=== PATIENT | male | born 1975 | race Caucasian/White ===

== ENCOUNTER 2018-05-17 13:29 | Observation (INO) ==
[2018-05-17] MEDS ORDERED: Morphine Inj 4 MG/ML Vial IV.PUSH ONE (13:42)
--- NOTE | 2018-05-17 13:52 | ED ---
HPI General Chief complaint: Chest Pain Stated complaint: Chest Pain x 1.5 Hr Time Seen by Provider: 05/17/18 13:36 Source: patient Mode of arrival: ambulatory Limitations: no limitations History of Present Illness HPI narrative: Patient is a 42 year old male who comes in complaining of left sided chest pain. He says it started about an hour ago and has been constant. He describes the pain as a "pressure." He denies radiation of the pain. He says he had a history of hiatal hernia and occasionally has pain from this, but his pain today feels different. He was admitted at an OSH a few years ago when he had a stress test performed, which he says was normal. He denies SOB. He denies nausea or vomiting. He took 2 baby aspirin at home prior to arrival without relief of his symptoms. He says nothing seems to improve or worsen his symptoms. Severity is mild to moderate. Onset (ago): hour(s) (1) Treatments prior to arrival: aspirin Related Data Allergies Allergy/AdvReac Type Severity Reaction Status Date / Time No Known Allergies Allergy Verified 05/17/18 14:42 Review of Systems Except as stated in HPI: all other systems reviewed are negative Constitutional Denies chills and Denies fever(s) Cardiovascular Reports chest pain, Denies diaphoresis, Denies syncope and Denies edema Respiratory Denies dyspnea and Denies dyspnea on exertion Gastrointestinal Denies nausea and Denies vomiting Musculoskeletal Denies myalgias and Denies arthralgias Integumentary/Breasts Denies rash Neurologic Denies focal weakness [facility] Medical History Medical History Hiatal hernia (Acute) Surgical History Surgical History History of back surgery (Acute) History of cholecystectomy (Acute) Social History Social History Smoking Status: Never smoker How Often Do You Have a Drink Containing Alcohol: 2 to 4 times a month Recent Travel in [facility] within the Last 8 Weeks: No Recent Out of Country Travel within the Last 8 Weeks: No Exam Narrative Exam Narrative: GENERAL: Awake and alert, in no acute distress. SKIN: Focused skin assessment warm/dry. No wounds or signs of infection. HEAD: Atraumatic. Normocephalic. EYES: Pupils equal and round. No scleral icterus. EOMI. ENT: Mucous membranes pink and moist. NECK: Trachea midline. No JVD. CARDIOVASCULAR: Regular rate and rhythm. No murmur appreciated. RESPIRATORY: No accessory muscle use. Clear to auscultation. Breath sounds equal bilaterally. GASTROINTESTINAL: Abdomen soft, non-tender, nondistended. MUSCULOSKELETAL: No obvious deformities. No clubbing. No cyanosis. No edema. NEUROLOGICAL: Awake and alert. No obvious cranial nerve deficits. Motor grossly within normal limits. Normal speech. PSYCHIATRIC: Appropriate mood and affect; insight and judgment normal. Course Hospital Course: IV established, labs sent. Labs show no acute abnormalities. Troponin is negative. Given Aspirin and Morphine. Reevaluation(s) Reevaluation #1: Patient says his pain is starting to ease. I discussed with him the need for observation and he is agreeable at this time. Time: 15:01 Initial Documented Vital Signs Temperature 98.2 F 05/17/18 13:35 Pulse Rate 66 05/17/18 13:35 Respiratory Rate 16 05/17/18 13:35 Blood Pressure 150/97 H 05/17/18 13:35 Pulse Oximetry 95 05/17/18 13:35 Last Documented Vital Signs Temperature 98.2 F 05/17/18 13:35 Pulse Rate 66 05/17/18 13:35 Respiratory Rate 16 05/17/18 13:35 Blood Pressure 150/97 H 05/17/18 13:35 Pulse Oximetry 95 05/17/18 13:35 Medical Decision Making MDM Narrative Medical decision making narrative: Patient is a 42 year old male who comes in complaining of left sided chest pain. Exam shows no acute abnormalities. Labs sent show initial troponin is negative. I believe patient would benefit from observation stay to rule out ACS. Differential Diagnosis Differential Diagnosis: ACS vs NSTEMI vs STEMI Medical Records Medical records reviewed: Yes I reviewed the patient's medical records. Lab Data Result diagrams: 05/17/18 13:30 05/17/18 13:30 Lab Results 05/17/18 05/17/18 05/17/18 Range/Units 13:30 13:30 13:30 CBC w Diff Auto diff final WBC 8.5 (4.0-11.0) th/mm3 RBC 5.19 (4.50-5.90) mil/mm3 Hgb 15.0 (13.0-17.0) gm/dL Hct 42.2 (39.0-51.0) % MCV 81.2 (80.0-100.0) fL MCH 28.9 (27.0-34.0) pg MCHC 35.6 (32.0-36.0) % RDW 13.3 (11.6-17.2) % Plt Count 318 (150-450) th/mm3 MPV 7.5 (7.0-11.0) fL Neut % (Auto) 63.1 (16.0-70.0) % Lymph % (Auto) 23.0 (9.0-44.0) % [place] % (Auto) 7.6 (0.0-8.0) % Eos % (Auto) 5.7 H (0.0-4.0) % Baso % (Auto) 0.6 (0.0-2.0) % Neut # (Auto) 5.3 (1.8-7.7) th/mm3 Lymph # (Auto) 2.0 (1.0-4.8) th/mm3 [place] # (Auto) 0.6 (0.0-0.9) th/mm3 Eos # (Auto) 0.5 H (0.0-0.4) th/mm3 Baso # (Auto) 0.1 (0.0-0.2) th/mm3 WBC Differential . PT 10.5 (9.8-11.6) sec INR 1.0 Ratio APTT 27.0 (24.3-30.1) sec Sodium 139 (136-145) meq/L Potassium 3.9 (3.5-5.1) meq/L Chloride 103 (98-107) meq/L Carbon Dioxide 27.3 (21.0-32.0) meq/L Anion Gap 9 (5-15) meq/L BUN 10 (7-18) mg/dL Creatinine 0.87 (0.60-1.30) mg/dL Estimated GFR Greater than 89 (>89) mL/min Random Glucose 93 (74-106) mg/dL Calcium 8.3 L (8.5-10.1) mg/dL Total Bilirubin 0.4 (0.2-1.0) mg/dL AST 30 (15-37) U/L ALT 71 (12-78) U/L Alkaline Phosphatase 68 (45-117) U/L Total Creatine Kinase 313 H (39-308) U/L CK-MB (CK-2) 3.1 (0.5-3.6) ng/mL CK-MB (CK-2) % 1.0 (0.0-4.0) % Troponin I Less than 0.02 L (0.02-0.05) ng/mL B-Natriuretic Peptide (0-100) pg/mL Total Protein 7.8 (6.4-8.2) g/dL Albumin 3.8 (3.4-5.0) g/dL 05/17/18 Range/Units 13:30 CBC w Diff WBC (4.0-11.0) th/mm3 RBC (4.50-5.90) mil/mm3 Hgb (13.0-17.0) gm/dL Hct (39.0-51.0) % MCV (80.0-100.0) fL MCH (27.0-34.0) pg MCHC (32.0-36.0) % RDW (11.6-17.2) % Plt Count (150-450) th/mm3 MPV (7.0-11.0) fL Neut % (Auto) (16.0-70.0) % Lymph % (Auto) (9.0-44.0) % [place] % (Auto) (0.0-8.0) % Eos % (Auto) (0.0-4.0) % Baso % (Auto) (0.0-2.0) % Neut # (Auto) (1.8-7.7) th/mm3 Lymph # (Auto) (1.0-4.8) th/mm3 [place] # (Auto) (0.0-0.9) th/mm3 Eos # (Auto) (0.0-0.4) th/mm3 Baso # (Auto) (0.0-0.2) th/mm3 WBC Differential PT (9.8-11.6) sec INR Ratio APTT (24.3-30.1) sec Sodium (136-145) meq/L Potassium (3.5-5.1) meq/L Chloride (98-107) meq/L Carbon Dioxide (21.0-32.0) meq/L Anion Gap (5-15) meq/L BUN (7-18) mg/dL Creatinine (0.60-1.30) mg/dL Estimated GFR (>89) mL/min Random Glucose (74-106) mg/dL Calcium (8.5-10.1) mg/dL Total Bilirubin (0.2-1.0) mg/dL AST (15-37) U/L ALT (12-78) U/L Alkaline Phosphatase (45-117) U/L Total Creatine Kinase (39-308) U/L CK-MB (CK-2) (0.5-3.6) ng/mL CK-MB (CK-2) % (0.0-4.0) % Troponin I (0.02-0.05) ng/mL B-Natriuretic Peptide 4 (0-100) pg/mL Total Protein (6.4-8.2) g/dL Albumin (3.4-5.0) g/dL Imaging Data Radiologist's impression: ITS Impressions Chest X-Ray 05/17/18 13:42 CONCLUSION: No acute cardiopulmonary disease ECG Data EKG Prior to Arrival: No Attestation: I personally reviewed and interpreted this ECG as follows: Interpretation: ECG shows NSR at rate of 76, no ST elevation or depression, normal intervals. Discharge Plan Discharge Disposition Patient Disposition: 30 Still Patient Discharge Condition Condition: Stable Discharge Details Discharge Problem: Chest pain Physicians Team ED Provider: Hanna Kaur Primary Care Provider: Primary Care Allison Olson Discharge Instructions Patient Printed Instructions: Chest Pain (ED) Status ED Status: With Doctor
[2018-05-17 14:10] LABS: Baso # (Auto) 0.1 th/mm3 (0.0-0.2); Baso % (Auto) 0.6 % (0.0-2.0); Eos # (Auto) 0.5 th/mm3 (0.0-0.4); Eos % (Auto) 5.7 % (0.0-4.0); Hematocrit 42.2 % (39.0-51.0); Mean Corpuscular HGB Conc 35.6 % (32.0-36.0); Mean Corpuscular Hemoglobin 28.9 pg (27.0-34.0); Mean Corpuscular Volume 81.2 fL (80.0-100.0); Mean Platelet Volume 7.5 fL (7.0-11.0); Mono # (Auto) 0.6 th/mm3 (0.0-0.9); Mono % (Auto) 7.6 % (0.0-8.0); Neut # (Auto) 5.3 th/mm3 (1.8-7.7); Neut % (Auto) 63.1 % (16.0-70.0); Platelet Count 318 th/mm3 (150-450); Red Blood Count 5.19 mil/mm3 (4.50-5.90); Red Cell Distribution Width 13.3 % (11.6-17.2); White Blood Count 8.5 th/mm3 (4.0-11.0)
[2018-05-17 14:17] LABS: Chloride 103 meq/L (98-107); Potassium 3.9 meq/L (3.5-5.1); Sodium 139 meq/L (136-145)
[2018-05-17 14:20] LABS: Albumin 3.8 g/dL (3.4-5.0); Anion Gap 9 meq/L (5-15); Calcium 8.3 mg/dL (8.5-10.1); Carbon Dioxide 27.3 meq/L (21.0-32.0); Glucose,Random 93 mg/dL (74-106)
[2018-05-17 14:21] LABS: Blood Urea Nitrogen 10 mg/dL (7-18)
[2018-05-17 14:22] LABS: Prothrombin Time 10.5 sec (9.8-11.6)
[2018-05-17 14:23] LABS: Alanine Aminotransferase 71 U/L (12-78); Aspartate Aminotransferase 30 U/L (15-37)
[2018-05-17 14:24] LABS: Glomerular Filtration Rate Greater Than 89 mL/min (>89)
--- NOTE | 2018-05-17 14:24 | XR ---
EXAM DATE: 05/17/2018 2:21 PM EDT AGE/SEX: 42 years / Male INDICATIONS: Left side chest pain today. CLINICAL DATA: This is the patient's initial encounter. Patient reports that signs and symptoms have been present for 1 day and indicates a pain score of 8/10. MEDICAL/SURGICAL HISTORY: Hypertension. Renal calculi. . Renal stent. COMPARISON: No prior exams available for comparison. FINDINGS: A single AP view of the chest demonstrates the lungs to be symmetrically aerated without evidence of mass, infiltrate or effusion. The cardiomediastinal contours are unremarkable. Osseous structures a re intact. CONCLUSION: No acute cardiopulmonary disease Electronically signed by: Natan Warren MD 05/17/2018 2:23 PM EDT
[2018-05-17 14:25] LABS: Total Protein 7.8 g/dL (6.4-8.2)
[2018-05-17 14:26] LABS: Alkaline Phosphatase 68 U/L (45-117); Creatine Kinase 313 U/L (39-308)
[2018-05-17 14:38] LABS: Creatine Kinase MB 3.1 ng/mL (0.5-3.6)
[2018-05-17] MEDS ORDERED: Acetaminophen 500 MG Tablet PO PRN (15:16)
[2018-05-17] MEDS ORDERED: Morphine Inj 4 MG/ML Vial IV.PUSH PRN (15:16)
[2018-05-17] MEDS ORDERED: Temazepam 15 MG Capsule PO PRN (15:16)
--- NOTE | 2018-05-17 16:40 | P.HP ---
History of Present Illness Primary Care Physician: No Primary Care Physician Chief Complaint: chest pain History of Present Illness: patient is a 42 y/o male with history of hiatal hernia who presented to ER with chest pain. he says that he gets on and off chest pain because of hiatal hernia. but this time ' it was different'. he says that the pain started few hours ago when he was sitting at his desk. pain was localized to left upper chest with no radiation. pain was not associated with nausea, vomiting, sob or diaphoresis. he says that he had an endoscopy about two years ago when he was found to have hiatal hernia and barrette's esophagus. - Diagnosis (1) Chest pain (2) Hiatal hernia Inpatient Certification: I certify that the inpatient services were ordered in accordance with Medicare regulations governing the order. This includes certification that hospital inpatient services are reasonable and necessary and in the case of services not specified as inpatient-only under 42 CFR 419.22(n), that they are appropriately provided as inpatient services in accordance to with the 2-midnight benchmark under 43 CFR 412.3(e) Estimated Total Length of Stay (Days): 2 Review of Systems All other systems reviewed negative except as stated in HPI PMFSH - History History Provided By: Patient - Medical History Medical History: Medical History (Last Updated 05/17/18 @ 14:24 by Lexy Pineda) Hiatal hernia - Surgical History Surgical History: Surgical History (Last Reviewed 05/17/18 @ 16:03 by Aylin Avalos RN) History of back surgery History of cholecystectomy - Tobacco History Smoking Status: Never smoker - Alcohol History How Often Do You Have a Drink Containing Alcohol: 2 to 4 times a month - Travel History Recent Travel in the [place] Within the Last 8 Weeks: No Recent Travel Out of the Country Within the Last 8 Weeks: No - Immunization History Tetanus Immunization: <5 Years Medications and Allergies Active Medications: Active Medications Acetaminophen (Tylenol) 500 mg PO Q4H PRN PRN Reason: HEADACHE Hydrocodone Bitart/Acetaminophen ([place] 7.5/325) 1 tab PO Q4H PRN PRN Reason: PAIN SCALE 1 TO 7 Aspirin (Aspirin) 325 mg PO DAILY ANA MARIA Morphine Sulfate (Morphine Inj) 2 mg IV.PUSH Q4H PRN PRN Reason: PAIN SCALE 8 TO 10 Ondansetron HCl (Zofran Odt) 4 mg PO Q6H PRN PRN Reason: NAUSEA OR VOMITING Sodium Chloride (Ns Flush) 2 ml IV.FLUSH UNSCH PRN PRN Reason: FLUSH AFTER USING IV ACCESS Sodium Chloride (Ns Flush) 2 ml IV.FLUSH BID ANA MARIA Sodium Chloride (Ns Flush) 2 ml IV.FLUSH PRN PRN PRN Reason: FLUSH AFTER USING IV ACCESS Temazepam (Restoril) 15 mg PO HS PRN PRN Reason: INSOMNIA Allergies Allergy/AdvReac Type Severity Reaction Status Date / Time No Known Allergies Allergy Verified 05/17/18 14:42 Home Medications Medication Instructions Recorded Confirmed Type No Known Home Medications 05/17/18 05/17/18 History Exam Vital signs: Vital Signs 05/17/18 13:35 05/17/18 15:45 Temperature 98.2 F Pulse Rate 66 60 Respiratory Rate 16 16 Blood Pressure 150/97 H 158/92 H Pulse Oximetry 95 97 - Constitutional no acute distress - Routine HEENT Exam Head: Present: normocephalic, atraumatic - Routine Neck Exam Present: supple, full ROM - Routine Cardiovascular Exam Present: RRR - Routine Abdominal Exam Present: soft, normoactive bowel sounds - Routine Neurological Exam Present: alert, oriented X3 Results - Labs CBC & Chem 7: 05/17/18 13:30 05/17/18 13:30 Labs: Laboratory Results - last 24 hr 05/17/18 05/17/18 05/17/18 13:30 13:30 13:30 CBC w Diff Auto diff final WBC 8.5 RBC 5.19 Hgb 15.0 Hct 42.2 MCV 81.2 MCH 28.9 MCHC 35.6 RDW 13.3 Plt Count 318 MPV 7.5 Neut % (Auto) 63.1 Lymph % (Auto) 23.0 [place] % (Auto) 7.6 Eos % (Auto) 5.7 H Baso % (Auto) 0.6 Neut # (Auto) 5.3 Lymph # (Auto) 2.0 [place] # (Auto) 0.6 Eos # (Auto) 0.5 H Baso # (Auto) 0.1 WBC Differential . PT 10.5 INR 1.0 APTT 27.0 Sodium 139 Potassium 3.9 Chloride 103 Carbon Dioxide 27.3 Anion Gap 9 BUN 10 Creatinine 0.87 Estimated GFR Greater than 89 Random Glucose 93 Calcium 8.3 L Total Bilirubin 0.4 AST 30 ALT 71 Alkaline Phosphatase 68 Total Creatine Kinase 313 H CK-MB (CK-2) 3.1 CK-MB (CK-2) % 1.0 Troponin I Less than 0.02 L B-Natriuretic Peptide Total Protein 7.8 Albumin 3.8 05/17/18 13:30 CBC w Diff WBC RBC Hgb Hct MCV MCH MCHC RDW Plt Count MPV Neut % (Auto) Lymph % (Auto) [place] % (Auto) Eos % (Auto) Baso % (Auto) Neut # (Auto) Lymph # (Auto) [place] # (Auto) Eos # (Auto) Baso # (Auto) WBC Differential PT INR APTT Sodium Potassium Chloride Carbon Dioxide Anion Gap BUN Creatinine Estimated GFR Random Glucose Calcium Total Bilirubin AST ALT Alkaline Phosphatase Total Creatine Kinase CK-MB (CK-2) CK-MB (CK-2) % Troponin I B-Natriuretic Peptide 4 Total Protein Albumin - Imaging Impressions Chest X-Ray 05/17/18 13:42 CONCLUSION: No acute cardiopulmonary disease Caprini VTE Risk Assessment Caprini VTE Risk Assessment: Moderate/High Risk (score >= 2) Caprini Risk Assessment Model: Point Value = 1 Point Value = 2 Point Value = 3 Point Value = 5 Age 41-60 Minor surgery BMI > 25 kg/m2 Swollen legs Varicose veins or History of unexplained or recurrent spontaneous Oral contraceptives or hormone replacement Sepsis (< 1 month) Serious lung disease, including pneumonia (< 1 month) Abnormal pulmonary function Acute myocardial infarction Congestive heart failure (< 1 month) History of inflammatory bowel disease Medical patient at bed rest Age 61-74 Arthroscopic surgery Major open surgery (> 45 min) Laparoscopic surgery (> 45 min) Malignancy Confined to bed (> 72 hours) Immobilizing plaster cast Central venous access Age >= 75 History of VTE Family history of VTE Factor V Leiden Prothrombin [id number] Lupus anticoagulant Anticardiolipin antibodies Elevated serum homocysteine Heparin-induced thrombocytopenia Other congenital or acquired thrombophilia Stroke (< 1 month) Elective arthroplasty Hip, pelvis, or leg fracture Acute spinal cord injury (< 1 month) Prophylaxis Regimen: Total Risk Factor Score Risk Level Prophylaxis Regimen 0-1 Low Early ambulation 2 Moderate Order ONE of the following: *Sequential Compression Device (SCD) *Heparin 5000 units SQ BID 3-4 Higher Order ONE of the following medications: *Heparin 5000 units SQ TID *Enoxaparin/Lovenox 40 mg SQ daily (WT < 150 kg, CrCl > 30 mL/min) *Enoxaparin/Lovenox 30 mg SQ daily (WT < 150 kg, CrCl > 10-29 mL/min) *Enoxaparin/Lovenox 30 mg SQ BID (WT < 150 kg, CrCl > 30 mL/min) AND/OR *Sequential Compression Device (SCD) 5 or more Highest Order ONE of the following medications: *Heparin 5000 units SQ TID (Preferred with Epidurals) *Enoxaparin/Lovenox 40 mg SQ daily (WT < 150 kg, CrCl > 30 mL/min) *Enoxaparin/Lovenox 30 mg SQ daily (WT < 150 kg, CrCl > 10-29 mL/min) *Enoxaparin/Lovenox 30 mg SQ BID (WT < 150 kg, CrCl > 30 mL/min) AND *Sequential Compression Device (SCD) Assessment and Plan - Assessment (1) Chest pain Code(s): R07.9 - Chest pain, unspecified Status: Acute Plan: will trend the cardiac enzymes- possible stress test tomorrow. (2) Hiatal hernia Code(s): K44.9 - Diaphragmatic hernia without obstruction or gangrene Status: Acute Plan: f/u as outpatient with his GI. (1) Chest pain Qualifiers: Chest pain type: unspecified Qualified Code(s): R07.9 - Chest pain, unspecified
[2018-05-17 17:18] LABS: Creatine Kinase 278 U/L (39-308)
[2018-05-17 20:03] LABS: Creatine Kinase 262 U/L (39-308)
[2018-05-18] MEDS ORDERED: Aspirin 325 MG Tablet PO SCH (09:00)
--- NOTE | 2018-05-18 09:14 | P.PN ---
Subjective Interval history: 42-year-old male who is seen in follow-up for epigastric and chest pain. Patient states that he has not had any recurrence of his chest discomfort since being in the hospital. Patient does understand that he has low risk factors for any underlying cardiac disease, however he was notified that he has been ruled out for acute coronary event with serial cardiac enzymes and EKGs. Patient feels that his discomfort is likely secondary to his GI history of hiatal hernia, gastric reflux. Patient states that he would rather not pursue any stress testing at this time. Physical Exam Vital signs: Vital Signs 05/17/18 13:35 05/17/18 15:45 05/17/18 17:16 Temperature 98.2 F 96.1 F L Pulse Rate 66 60 68 Respiratory Rate 16 16 18 Blood Pressure 150/97 H 158/92 H 160/95 H Pulse Oximetry 95 97 96 05/17/18 18:54 05/17/18 20:00 05/17/18 20:35 Temperature 96.7 F L Pulse Rate 74 71 Respiratory Rate 18 Blood Pressure 135/90 Pulse Oximetry 96 99 05/18/18 00:00 05/18/18 04:00 05/18/18 08:23 Temperature 98 F 98.0 F 96.4 F L Pulse Rate 98 H 62 73 Respiratory Rate 20 16 20 Blood Pressure 150/70 H 122/71 142/69 H Pulse Oximetry 98 95 97 Intake & Output 05/17/18 05/18/18 05/18/18 18:59 06:59 18:59 Intake Total 100 / 100 Balance 100 / 100 Weight 126.7 kg Intake: Oral 100 / 100 Other: # Voids 2 Weight On Admission 126.7 kg Narrative: GENERAL: Well-developed, well-nourished, in no acute distress. alert and orientated HEENT: Head is normocephalic without any lesions or masses noted. Facial features are symmetric. Eyes: Extraocular muscles are intact. Conjunctivae were clear. NECK: Supple without any masses. Trachea midline no deviation. No JVD, CARDIAC: Regular rhythm, regular rate. S1/S2 are heard. No murmurs gallops or rubs. LUNGS: Clear to auscultation bilaterally. No wheeze, rhonchi or rales. No use of accessory muscles on inspiration or expiration. ABDOMEN: Soft, nontender. Nondistended. Bowel sounds heard in all 4 quadrants. No organomegaly or masses. Negative rebound, negative guarding EXTREMITIES: No edema, pulses are equal bilaterally. No cyanosis or clubbing NEUROLOGY: Mood and affect appear appropriate. Cranial nerves II through XII grossly intact. Moving all extremities, speech is clear Results - Labs CBC & Chem 7: 05/17/18 13:30 05/17/18 13:30 Laboratory Results - last 24 hr 05/17/18 05/17/18 05/17/18 13:30 13:30 13:30 CBC w Diff Auto diff final WBC 8.5 RBC 5.19 Hgb 15.0 Hct 42.2 MCV 81.2 MCH 28.9 MCHC 35.6 RDW 13.3 Plt Count 318 MPV 7.5 Neut % (Auto) 63.1 Lymph % (Auto) 23.0 [place] % (Auto) 7.6 Eos % (Auto) 5.7 H Baso % (Auto) 0.6 Neut # (Auto) 5.3 Lymph # (Auto) 2.0 [place] # (Auto) 0.6 Eos # (Auto) 0.5 H Baso # (Auto) 0.1 WBC Differential . PT 10.5 INR 1.0 APTT 27.0 Sodium 139 Potassium 3.9 Chloride 103 Carbon Dioxide 27.3 Anion Gap 9 BUN 10 Creatinine 0.87 Estimated GFR Greater than 89 Random Glucose 93 Calcium 8.3 L Total Bilirubin 0.4 AST 30 ALT 71 Alkaline Phosphatase 68 Total Creatine Kinase 313 H CK-MB (CK-2) 3.1 CK-MB (CK-2) % 1.0 Troponin I Less than 0.02 L B-Natriuretic Peptide Total Protein 7.8 Albumin 3.8 05/17/18 05/17/18 05/17/18 13:30 16:40 19:16 CBC w Diff WBC RBC Hgb Hct MCV MCH MCHC RDW Plt Count MPV Neut % (Auto) Lymph % (Auto) [place] % (Auto) Eos % (Auto) Baso % (Auto) Neut # (Auto) Lymph # (Auto) [place] # (Auto) Eos # (Auto) Baso # (Auto) WBC Differential PT INR APTT Sodium Potassium Chloride Carbon Dioxide Anion Gap BUN Creatinine Estimated GFR Random Glucose Calcium Total Bilirubin AST ALT Alkaline Phosphatase Total Creatine Kinase 278 262 CK-MB (CK-2) CK-MB (CK-2) % Troponin I Less than 0.02 L Less than 0.02 L B-Natriuretic Peptide 4 Total Protein Albumin - Imaging Impressions Chest X-Ray 05/17/18 13:42 CONCLUSION: No acute cardiopulmonary disease Assessment and Plan - Assessment (1) Chest pain Code(s): R07.9 - Chest pain, unspecified Status: Acute Plan: -Patient with no risk factors for any underlying cardiac illness -Symptoms do correlate with his history of gastric reflux, hiatal hernia -Patient has been ruled out for acute coronary event with serial cardiac enzymes are negative, -Serial EKGs were performed which did not indicate any acute changes or injury -Patient continued on aspirin, nitroglycerin as needed, [place] and morphine for pain -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 Diet: Regular diet Medication per medication reconciliation Follow-up with primary medical doctor in 1 week (1) Chest pain Qualifiers: Chest pain type: unspecified Qualified Code(s): R07.9 - Chest pain, unspecified
--- NOTE | 2018-05-18 17:40 | ECG ---
Date Performed: 05/17/2018 Time Performed: 19:14:26 PTAGE: 42 years EKG: Sinus rhythm BORDERLINE LEFT AXIS DEVIATION BORDERLINE ECG PREVIOUS TRACING : 05/17/2018 16.39 Since the previous tracing, no significant change noted DOCTOR: Anais Tyler Interpretating Date/Time 05/18/2018 17:39:27
--- NOTE | 2018-05-18 17:40 | ECG ---
Date Performed: 05/17/2018 Time Performed: 16:39:15 PTAGE: 42 years EKG: Sinus rhythm BORDERLINE LEFT AXIS DEVIATION MINIMAL VOLTAGE CRITERIA FOR LVH, CONSIDER NORMAL VARIANT BORDERLINE ECG PREVIOUS TRACING : 05/17/2018 13.37 Since the previous tracing, no significant change noted DOCTOR: Anais Tyler Interpretating Date/Time 05/18/2018 17:39:00
--- NOTE | 2018-05-18 18:01 | ECG ---
Date Performed: 05/17/2018 Time Performed: 13:37:09 PTAGE: 42 years EKG: Sinus rhythm WITH SINUS ARRHYTHMIA BORDERLINE LEFT AXIS DEVIATION BORDERLINE ECG NO PREVIOUS TRACING DOCTOR: Anais Tyler Interpretating Date/Time 05/18/2018 18:00:22
== END 2018-05-18 11:17 | disposition home or self-care (01) ==
LOC: PH3 13:29 → PHEDA 13:29 → PHED 13:29 → PH3 16:20
PROVIDERS: ADMIT Internal Medicine; ATTEND Internal Medicine